=== PATIENT | male | born 1955 | race Caucasian/White ===

== ENCOUNTER 2024-04-16 09:49 | Inpatient (IN) | payer OTHER ==
[~2024-04-16] VITALS: Ht 177.8 cm; Wt 83.2 kg
[2024-04-16] MEDS ORDERED: Diltiazem HCl 5 MG / ML 5ML Vial IV ONE ×2 (10:25→11:25)
[2024-04-16 10:52] LABS: BASOPHILS ABSOLUTE AUTO 0.15 K/mm3 (0.00-0.23); BASOPHILS PERCENT AUTO 2 % (0-2); EOSINOPHILS ABSOLUTE AUTO 0.26 K/mm3 (0.00-0.68); EOSINOPHILS PERCENT AUTO 3 % (0-6); Hematocrit 51.3 % (37.0-53.0); Hemoglobin 18.1 g/dL (13.5-17.5); IMMATURE GRAN ABSOLUTE AUTO 0.03 K/mm3 (0.00-0.10); IMMATURE GRAN PERCENT AUTO 0 % (0-1); LYMPHOCYTES ABSOLUTE AUTO 1.03 K/mm3 (0.84-5.20); LYMPHOCYTES PERCENT AUTO 13 % (21-46); MONOCYTES ABSOLUTE AUTO 0.78 K/mm3 (0.16-1.47); MONOCYTES PERCENT AUTO 10 % (4-13); Mean Corpuscular HGB 35.5 pg (26.0-34.0); Mean Corpuscular HGB Conc 35.3 g/dL (31.5-36.5); Mean Corpuscular Volume 101 fL (80-100); Mean Platelet Volume 10.6 fL (9.1-12.4); NEUTROPHILS ABSOLUTE AUTO 5.62 K/mm3 (1.96-9.15); NEUTROPHILS PERCENT AUTO 71 % (41-73); Platelet Count 230 K/mm3 (150-400); RDW Coefficient Variation 13.2 % (11.7-14.2); RDW Standard Deviation 48.6 fL (35.1-46.3); White Blood Cell Count 7.87 K/mm3 (4.00-11.30)
[2024-04-16 11:14] LABS: Albumin, Blood 3.6 g/dL (3.4-5.0); Albumin/Globulin Ratio 0.9 (0.8-1.8); Bilirubin, Total 1.9 mg/dL (0.1-1.0); Calcium, Blood 9.1 mg/dL (8.5-10.1); Creatinine, Blood 1.13 mg/dL (0.60-1.20); Globulin, Blood 3.9 g/dL (2.2-4.0); Potassium, Blood 4.2 mmol/L (3.5-5.5); Total Protein, Blood 7.5 g/dL (6.4-8.2)
[2024-04-16 11:30] LABS: Magnesium, Blood 1.9 mg/dL (1.6-2.4); Thyroid Stimulating Hormone 3.63 uIU/mL (0.360-4.800)
[2024-04-16] MEDS ORDERED: FLU VACC TS2024-25(6MOS UP)/PF 45 MCG/0.5 ML SYRINGE IM SCH (13:05)
[2024-04-16 14:55] VITALS: BP 165/81
[2024-04-16] MEDS ORDERED: TRAZ50 PO (15:17)
[2024-04-16] MEDS ORDERED: THERA-D2000 UNIT PO (15:18)
[2024-04-16] MEDS ORDERED: B COMPLEX FORM0.4 MG PO (15:18)
[2024-04-16] MEDS ORDERED: MAGNESIUM OXID500 MG PO (15:19)
[2024-04-16] MEDS ORDERED: FLAX PO (15:20)
[2024-04-16] MEDS ORDERED: FISH OIL 1,0001 EA10 PO (15:20)
[2024-04-16] MEDS ORDERED: MELA3 PO (15:20)
[2024-04-16] MEDS ORDERED: TUMERIC (15:21)
[2024-04-16] MEDS ORDERED: GARLIC200 MG PO (15:21)
[2024-04-16 15:30] VITALS: BP 151/98
[2024-04-16 15:37] VITALS: BP 151/98
[2024-04-16 15:46] VITALS: BP 139/100
--- NOTE | 2024-04-16 16:21 | NUR ---
Pt was admitted to PCU 18. Independently transferred from the [facility] to the bed. Alert and oriented x 4. No dyspnea, no chest discomfort, no chest palpitations, no diaphoresis. Noted hypertension, which pt states is not usual for him. Atrial flutter by telemetry, rate is 103-133. Cardizem gtt was at 5 mg/hour upon arrival at 1515; now it has been increased to 10 mg/hour and rate is 95-115 bpm. Pt sat on side of bed and ate a snack; he has not eaten since yesterday evening.
[2024-04-16 20:19] VITALS: BP 93/74
[2024-04-16] MEDS ORDERED: Docusate Sodium 100 MG Cap PO SCH (21:00)
[2024-04-16] MEDS ORDERED: Zolpidem Tartrate 5 MG Tab PO SCH (21:00)
[2024-04-16] MEDS ORDERED: Apixaban 5 MG Tab PO SCH (21:00)
[2024-04-17] VITALS (8 sets, daily range): BP systolic 109–134; BP diastolic 76–98
[2024-04-17 05:19] LABS: BASOPHILS ABSOLUTE AUTO 0.14 K/mm3 (0.00-0.23); BASOPHILS PERCENT AUTO 2 % (0-2); EOSINOPHILS PERCENT AUTO 5 % (0-6); Hematocrit 46.5 % (37.0-53.0); Hemoglobin 16.3 g/dL (13.5-17.5); IMMATURE GRAN ABSOLUTE AUTO 0.02 K/mm3 (0.00-0.10); IMMATURE GRAN PERCENT AUTO 0 % (0-1); LYMPHOCYTES ABSOLUTE AUTO 1.46 K/mm3 (0.84-5.20); LYMPHOCYTES PERCENT AUTO 25 % (21-46); MONOCYTES PERCENT AUTO 12 % (4-13); Mean Corpuscular HGB 35.1 pg (26.0-34.0); Mean Corpuscular HGB Conc 35.1 g/dL (31.5-36.5); Mean Corpuscular Volume 100 fL (80-100); NEUTROPHILS ABSOLUTE AUTO 3.25 K/mm3 (1.96-9.15); NEUTROPHILS PERCENT AUTO 55 % (41-73); Platelet Count 201 K/mm3 (150-400); RDW Coefficient Variation 13.1 % (11.7-14.2); RDW Standard Deviation 48.4 fL (35.1-46.3); Red Blood Cell Count 4.65 M/mm3 (4.30-5.90); White Blood Cell Count 5.87 K/mm3 (4.00-11.30)
[2024-04-17 05:56] LABS: Albumin/Globulin Ratio 0.9 (0.8-1.8); Bilirubin, Total 1.1 mg/dL (0.1-1.0); Bun/Creatinine Ratio 17.8 (12.0-20.0); Creatinine, Blood 0.9 mg/dL (0.60-1.20); Globulin, Blood 3.2 g/dL (2.2-4.0); Potassium, Blood 3.8 mmol/L (3.5-5.5); Total Protein, Blood 6.2 g/dL (6.4-8.2)
--- NOTE | 2024-04-17 06:37 | NUR ---
SHIFT SUMMARY PATIENT ALERT AND ORIENTED X4. HAD NO COMPLAINTS OF PAIN OR SHORTNESS OF BREATH. INDEPENDENT AMBULATING IN HIS ROOM. ON ROOM AIR WITH SPO2 >90%. VITAL SIGNS STABLE, AFLUTTER ON TELE. NO ACUTE ISSUES NOTED OVERNIGHT WILL CONTINUE TO MONITOR. CALL LIGHT WITHIN REACH.
--- NOTE | 2024-04-17 08:39 | NUR ---
ASSUMING CARE ASSUMED CARE OF PATIENT AT 0715. PATIENT IS A+O X4, INDEPENT IN ROOM, ABLE TO MAKE NEEDS KNOWN. NO ACUTE CHANGES REPORTED FROM OFF GOING RN. CALL LIGHT IN REACH, WILL CONTINUE TO TREAT.
[2024-04-17] MEDS ORDERED: Diltiazem HCl 180 MG Cap.CD PO SCH (10:00)
--- NOTE | 2024-04-17 16:25 | NUR ---
Upon receiving a referral for spiritual care, I visited the patient. He tells me about his move to [place] from [place] in recent months. He shares about his commitment to physical fitness, his love of reading and his med in gatherings with his family. He has 5 grown children, several sisters, nieces and nephews. He continues to enjoy learning and the beauty of the surrounding areas of [facility]. He has no religion preference and finds peace, inspiration and strength from the above listed activities. I provided therapeutic listening and a calming presence. Patient states that me visit was a good break from the weight his medical issues and the sterile envornment of the hospital
--- NOTE | 2024-04-17 17:42 | NUR ---
SHIFT SUMMARY PATIENT IS A+O X4, ABLE TO MAKE NEEDS KNOWN, IDEPENDENT IN THE ROOM. REMAINS IN AFLUTTER ON TELE, AMIODARONE GTT 33.3. NPO AT MIDNIGHT FOR JULIO TOMORROW. PATIENT STATES HE CONTINUES TO REMAIN ASYMTOMATIC, DENIES CHEST PAIN OR PRESSURE. NO ISSUES VOIDING. SPO HAS REMAINED ABOVE 94% ON ROOM AIR, NO COMPLAINTS OF SOB. CALL LIGHT IN REACH, WILL CONTINUE TO TREAT.
[2024-04-17] MEDS ORDERED: Doxepin HCL 10 MG CAP PO SCH (21:00)
[2024-04-18] VITALS (28 sets, daily range): BP systolic 69–151; BP diastolic 50–117
--- NOTE | 2024-04-18 03:52 | NUR ---
EOS: PATIENT A/O X4 NO ACUTE CHANGES THROUGH THE NIGHT. IS PLEASANT COOPERATIVE CHEST PAIN FREE DENIES DIZZINESS LIGHTHEADEDNESS, AMIO AT HALF RATE, IV SITE CDI. HR UPPER 120'S WITH EXERTION AND LOW 70'S WHILE SLEEPING. NO ACUTE CONCERNS FROM THIS RN OR PATIENT NPO SINCE 2348. EDUCATION PROVIDED ABOUT PLAN OF CARE.
[2024-04-18 04:36] LABS: BASOPHILS ABSOLUTE AUTO 0.12 K/mm3 (0.00-0.23); BASOPHILS PERCENT AUTO 2 % (0-2); EOSINOPHILS ABSOLUTE AUTO 0.31 K/mm3 (0.00-0.68); EOSINOPHILS PERCENT AUTO 5 % (0-6); Hematocrit 48.6 % (37.0-53.0); Hemoglobin 16.6 g/dL (13.5-17.5); IMMATURE GRAN ABSOLUTE AUTO 0.02 K/mm3 (0.00-0.10); IMMATURE GRAN PERCENT AUTO 0 % (0-1); LYMPHOCYTES ABSOLUTE AUTO 1.62 K/mm3 (0.84-5.20); LYMPHOCYTES PERCENT AUTO 25 % (21-46); MONOCYTES ABSOLUTE AUTO 0.69 K/mm3 (0.16-1.47); MONOCYTES PERCENT AUTO 11 % (4-13); Mean Corpuscular HGB Conc 34.2 g/dL (31.5-36.5); Mean Corpuscular Volume 103 fL (80-100); Mean Platelet Volume 10.6 fL (9.1-12.4); NEUTROPHILS ABSOLUTE AUTO 3.71 K/mm3 (1.96-9.15); NEUTROPHILS PERCENT AUTO 57 % (41-73); Platelet Count 200 K/mm3 (150-400); RDW Coefficient Variation 13.2 % (11.7-14.2); RDW Standard Deviation 50.4 fL (35.1-46.3); Red Blood Cell Count 4.74 M/mm3 (4.30-5.90); White Blood Cell Count 6.47 K/mm3 (4.00-11.30)
[2024-04-18 05:18] LABS: Albumin, Blood 3.3 g/dL (3.4-5.0); Albumin/Globulin Ratio 0.9 (0.8-1.8); Bilirubin, Total 0.8 mg/dL (0.1-1.0); Bun/Creatinine Ratio 20.8 (12.0-20.0); Creatinine, Blood 1.06 mg/dL (0.60-1.20); Globulin, Blood 3.6 g/dL (2.2-4.0); Potassium, Blood 4.4 mmol/L (3.5-5.5); Total Protein, Blood 6.9 g/dL (6.4-8.2)
[2024-04-18] MEDS ORDERED: NS 1,000 ML IV ONE (07:23)
[2024-04-18] MEDS ORDERED: Benzocaine Oral Spray 0.5ML UD ONE (07:29)
[2024-04-18] MEDS ORDERED: Lidocaine HCl 2% 20 ML MDV ONE (07:30)
[2024-04-18] MEDS ORDERED: propofoL 50 ML IV ONE (07:31)
--- NOTE | 2024-04-18 07:37 | NUR ---
PT ARRIVED FROM [facility] VIA WHEELCHAIR. PT A&O X3.
--- NOTE | 2024-04-18 07:50 | NUR ---
DR ESPINOSA IN ROOM.
--- NOTE | 2024-04-18 07:54 | NUR ---
DR DE SOUZA IN ROOM. TIME OUT COMPLETED.
--- NOTE | 2024-04-18 08:19 | NUR ---
PT TOLERATED JULIO/CARDIOVERSION WELL. WILL CONTINUE TO MONITOR.
--- NOTE | 2024-04-18 09:02 | NUR ---
PT TRANSPORTED BACK TO U 18 VIA WHEELCHAIR.
--- NOTE | 2024-04-18 09:30 | NUR ---
NURSE NOTE ASSUMED CARE OF THIS PATIENT AT 0715. A+OX4, ABLE TO MAKE NEEDS, INDNT IN ROOM. PATIENT WENT TO [employer] INSURANCE CLAIM EXAMINER THIS AM, RETURNED TO ROOM VIA WHEELCHAIR REPORT RECIEVED FROM [employer] CLAIM EXAMINER NURSE, EKG DONE IN [employer] CLAIM EXAMINER SHOWS NSR. PATIENT REMAINS ON TELE EHICH ALSO SHOWS NSR. AMIO DRIP RESTARTED AT 16.7, PLAN TO BRIDGE TO PO AROUND 1330. POSSIBLE DISCHARGE TOMORROW IF PATIENT REMAINS STABLE. CALL LIGHT IN REACH, WILL CONTINUE TO TREAT.
--- NOTE | 2024-04-18 12:23 | NUR ---
PATIENT CLEARED BY CARDIOLOGY FOR DISCHARGE.
[2024-04-18] MEDS ORDERED: ELIQUIS5 M2 PO (12:59)
[2024-04-18] MEDS ORDERED: DOXE10 PO (13:02)
[2024-04-18] MEDS ORDERED: AMIODARONE HCL400 M2 PO (13:40)
[2024-04-18] MEDS ORDERED: Amiodarone HCl200 MG PO ×2 (13:41→13:42)
--- NOTE | 2024-04-18 14:04 | NUR ---
NURSE NOTE PATIENT DISCHARGE INSTRUCTIONS WENT OVER FOLDER PROVIDED. PATIENT GOT SELF DRESSED, PERSONAL BELONGINGS GATHERED.
[2024-04-19] MEDS ORDERED: Amiodarone HCl 200 MG Tab PO SCH (09:00)
== END 2024-04-18 14:14 | disposition home or self-care (01) | DRG 310 ==
LOC: ER 09:49 → PCU 13:00
PROVIDERS: Emergency Medicine; Physician Assistant; ADMIT Family Medicine
PROC: 5A2204Z Restoration of Cardiac Rhythm, Single (ICD-10-PCS; principal; 2024-04-18)
DX: I48.92 Unspecified atrial flutter (principal); J45.909 Unspecified asthma, uncomplicated; Z79.899 Other long term (current) drug therapy; I48.91 Unspecified atrial fibrillation; F51.04 Psychophysiologic insomnia; E78.5 Hyperlipidemia, unspecified; G47.00 Insomnia, unspecified
CPT/HCPCS: 36415; 80053; 83690; 83735; 84439; 84443; 85025; 92960; 93005; 93010; 93306; 93312; 93325; 96374; 96376; 99285-25; A9270; J0282; J2704; J7030; J7060

== ENCOUNTER 2024-04-20 21:01 | Emergency (ER) | payer OTHER ==
[~2024-04-20] VITALS: Ht 177.8 cm; Wt 79.4 kg
[~2024-04-20 21:01] MED LIST: AMIODARONE HCL400 M2 PO; Amiodarone HCl200 MG PO; B COMPLEX FORM0.4 MG PO; DOXE10 PO; ELIQUIS5 M2 PO; FISH OIL 1,0001 EA10 PO; FLAX PO; GARLIC200 MG PO; MAGNESIUM OXID500 MG PO; MELA3 PO; THERA-D2000 UNIT PO; TRAZ50 PO; TUMERIC
[2024-04-20] MEDS ORDERED: CEPH500 PO (23:50)
[2024-04-20] MEDS ORDERED: Cephalexin Monohydrate 500 MG Cap PO ONE (23:50)
== END 2024-04-20 23:58 | disposition home or self-care (01) ==
LOC: ER 21:01
DX: T80.29XA Infection following other infusion, transfusion and therapeutic injection, initial encounter (principal); L03.114 Cellulitis of left upper limb; I48.91 Unspecified atrial fibrillation; Z79.01 Long term (current) use of anticoagulants; Z79.899 Other long term (current) drug therapy
CPT/HCPCS: 99283; A9270

== ENCOUNTER 2024-12-20 08:38 | Emergency (ER) | payer OTHER ==
[~2024-12-20] VITALS: Ht 177.8 cm; Wt 79.4 kg
[~2024-12-20 08:38] MED LIST changes: +CEPH500 PO
[2024-12-20] MEDS ORDERED: Diltiazem HCl 5 MG / ML 5ML Vial IV ONE (09:25)
[2024-12-20 09:34] LABS: BASOPHILS ABSOLUTE AUTO 0.11 K/mm3 (0.00-0.23); BASOPHILS PERCENT AUTO 2 % (0-2); EOSINOPHILS ABSOLUTE AUTO 0.19 K/mm3 (0.00-0.68); EOSINOPHILS PERCENT AUTO 3 % (0-6); Hematocrit 50.9 % (37.0-53.0); Hemoglobin 17.8 g/dL (13.5-17.5); IMMATURE GRAN ABSOLUTE AUTO 0.01 K/mm3 (0.00-0.10); IMMATURE GRAN PERCENT AUTO 0 % (0-1); LYMPHOCYTES ABSOLUTE AUTO 1.12 K/mm3 (0.84-5.20); LYMPHOCYTES PERCENT AUTO 18 % (21-46); MONOCYTES ABSOLUTE AUTO 0.55 K/mm3 (0.16-1.47); MONOCYTES PERCENT AUTO 9 % (4-13); Mean Corpuscular HGB Conc 35.0 g/dL (31.5-36.5); Mean Corpuscular Volume 99 fL (80-100); NEUTROPHILS ABSOLUTE AUTO 4.23 K/mm3 (1.96-9.15); NEUTROPHILS PERCENT AUTO 68 % (41-73); NRBC ABSOLUTE 0.00 K/mm3 (0.00-0.02); NRBC Auto 0.0 /100 WBC (0.0-0.2); Platelet Count 210 K/mm3 (150-400); RDW Coefficient Variation 13.7 % (11.7-14.2); RDW Standard Deviation 51.0 fL (35.1-46.3)
[2024-12-20 09:56] LABS: Anion Gap 6.0 mmol/L (3-11); Blood Urea Nitrogen 16.0 mg/dL (8-24); CO2, Blood 29.0 mmol/L (21-32); Calcium, Blood 9.1 mg/dL (8.5-10.1); Chloride, Blood 106.0 mmol/L (98-108); Creatinine, Blood 1.19 mg/dL (0.60-1.20); Glucose, Blood 123.0 mg/dL (70-99); Potassium, Blood 4.1 mmol/L (3.5-5.5); Sodium, Blood 137.0 mmol/L (136-145)
== END 2024-12-20 10:59 | disposition home or self-care (01) ==
LOC: ER 08:38
PROVIDERS: Student in an Organized Health Care Education/Training Program
DX: I48.91 Unspecified atrial fibrillation (principal); I10 Essential (primary) hypertension; Z91.148 Patient's other noncompliance with medication regimen for other reason; Z79.899 Other long term (current) drug therapy; Z79.01 Long term (current) use of anticoagulants; Z79.2 Long term (current) use of antibiotics; Z88.8 Allergy status to other drugs, medicaments and biological substances
CPT/HCPCS: 80048; 84484; 85025; 93005; 93010; 96374; 99285-25; A9270